=== PATIENT | female | born 1965 | race African-American/Black ===

== ENCOUNTER 2017-01-05 16:24 | Inpatient (IN) | payer OTHER ==
[2017-01-05 16:31] VITALS: BMI 18.7
--- NOTE | 2017-01-05 16:47 | HP ---
CIWA Score - CIWA Score Nausea/Vomitin Muscle Tremors: 3 Anxiety: 3 Agitation: 3 Paroxysmal Sweats: 1-Minimal Palms Moist Orientation: 0-Oriented Tacttile Disturbances: 2-Mild Itch/Numbness/Burn Auditory Disturbances: 2-Mild Harshness/Frighten Visual Disturbances: 2-Mild Sensitivity Headache: 2-Mild CIWA-Ar Total Score: 21 Admission ROS BHS - HPI Chief Complaint: I NEED HELP FROM STOP USING ALCOHOL AND CRACK Allergies/Adverse Reactions: Allergies Allergy/AdvReac Type Severity Reaction Status Date / Time Penicillins Allergy Verified 01/05/17 16:45 History of Present Illness: THIS 51 YEARS OLD FEMALE WITH ALCOHOL AND COCAINE DEPENDENCE Exam Limitations: No Limitations - Ebola screening Have you traveled outside of the country in the last 21 days: No Have you had contact with anyone from an Ebola affected area: No Have you been sick,other than usual withdrawal symptoms: No Do you have a fever: No - Review of Systems Constitutional: Loss of Appetite, Malaise, Night Sweats, Changes in sleep, Weakness, Unintentional Wgt. Loss EENT: reports: Nose Congestion Respiratory: reports: No Symptoms reported GI: reports: Diarrhea, Nausea, Vomiting, Abdominal cramping : reports: No Symptoms Reported Musculoskeletal: reports: Back Pain, Muscle Pain Integumentary: reports: Dryness Neuro: reports: Headache, Tremors Endocrine: reports: No Symptoms Reported Hematology: reports: No Symptoms Reported Psychiatric: reports: Depressed Patient History - Patient Medical History Hx Anemia: No Hx Asthma: No Hx Chronic Obstructive Pulmonary Disease (COPD): No Hx Cancer: No Hx Cardiac Disorders: No Hx Congestive Heart Failure: No Hx Hypertension: No Hx Hypercholesterolemia: No Hx Pacemaker: No HX Cerebrovascular Accident: No Hx Seizures: No Hx Dementia: No Hx Diabetes: No Hx Gastrointestinal Disorders: No Hx Liver Disease: No Hx Genitourinary Disorders: No Hx Sexually Transmitted Disorders: No Hx Renal Disease (ESRD): No Hx Thyroid Disease: No Hx Human Immunodeficiency Virus (HIV): Yes (SINCE 1999) Hx Hepatitis C: Yes Hx Depression: Yes Hx Suicide Attempt: No Hx Bipolar Disorder: No Hx Schizophrenia: No Other Medical History: NO SUICIDAL,NO HOMICIDAL - Patient Surgical History Past Surgical History: No - PPD History Previous Implant?: Yes Documented Results: Negative w/o proof Implanted On Prior [facility] Admission?: No PPD to be Administered?: Yes - Reproductive History Patient is a Female of Child Bearing Age (11 -55 yrs old): No Patient : No - Smoking Cessation Smoking history: Current every day smoker Have you smoked in the past 12 months: Yes Aproximately how many cigarettes per day: 10 Cigars Per Day: 0 Hx Chewing Tobacco Use: No Initiated information on smoking cessation: Yes 'Breaking Loose' booklet given: 01/05/17 - Substance & Tx. History Hx Alcohol Use: Yes Hx Substance Use: Yes Substance Use Type: Alcohol, Cocaine Hx Substance Use Treatment: Yes (LAST DETOX 2009 [facility]) - Substances Abused Alcohol Route: Oral Frequency: Daily Amount used: 1PINT OF VODKA/6 PACKS OF 12 OZS OF BEER Age of first use: 25 Date of Last Use: 01/04/17 Cocaine Route: Smoking Frequency: Daily Amount used: 100$ Age of first use: 22 Date of Last Use: 01/04/17 Family Disease History - Family Disease History Family History: Denies Admission Physical Exam [facility] - Vital Signs Vital Signs: Vital Signs - 24 hr 01/05/17 16:30 Temperature 98.0 F Pulse Rate 121 H Respiratory 20 Rate Blood Pressure 97/56 - Physical General Appearance: Yes: Moderate Distress, Tremorous, Irritable, Sweating HEENTM: Yes: Nasal Congestion Respiratory: Yes: Lungs Clear Neck: Yes: Within Normal Limits Breast: Yes: Breast Exam Deferred Cardiology: Yes: Tachycardia Abdominal: Yes: Within Normal Limits, Normal Bowel Sounds, Non Tender, Soft Genitourinary: Yes: Within Normal Limits Back: Yes: Muscle Spasm Musculoskeletal: Yes: Back pain, Muscle Pain Extremities: Yes: Tremors Neurological: Yes: taste tester II-XII NML intact, Fully Oriented, Alert, Motor Strength 5/5 Integumentary: Yes: Dry Lymphatic: Yes: Within Normal Limits - Diagnostic (1) Alcohol dependence with uncomplicated withdrawal Current Visit: Yes Status: Acute (2) Cocaine dependence Current Visit: Yes Status: Acute (3) Weight loss Current Visit: Yes Status: Acute (4) Syncope Current Visit: Yes Status: Acute (5) HIV (human immunodeficiency virus infection) Current Visit: Yes Status: Acute (6) Hepatitis C Current Visit: Yes Status: Acute (7) Depression Current Visit: Yes Status: Acute (8) Nicotine dependence Current Visit: Yes Status: Acute Cleared for Admission [facility] - Detox or Rehab [facility] Level of Care: Medically Managed Detox Regimen/Protocol: Librium [facility] Breath Alcohol Content Breath Alcohol Content: 0 Urine Pregancy Test - Result Urine Test Results: Negative- NO Line Present Urine Drug Screen - Results Drug Screen Negative: No Urine Drug Screen Results: CINDY-Cocaine, OXY-Oxycodone
[2017-01-05] MEDS ORDERED: diphenhydrAMINE HCL 50 MG CAPSULE PO PRN (16:58)
[2017-01-05] MEDS ORDERED: ACETAMINOPHEN 325 MG TABLET (FP) PO PRN (16:58)
[2017-01-05] MEDS ORDERED: P-EPHED 60MG/TRIPROLIDI 2.5MG TABLET PO PRN (16:58)
[2017-01-05] MEDS ORDERED: hydrOXYzine PAMOATE 25 MG CAPSULE (FP) PO PRN (16:58)
[2017-01-05] MEDS ORDERED: NICOTINE POLACRILEX 2 MG GUM BC PRN (16:58)
[2017-01-05] MEDS ORDERED: chlordiazePOXIDE HCL 25 MG CAPSULE PO PRN (16:58)
[2017-01-05] MEDS ORDERED: MAGNESIUM CITRATE 300 ML BOTTLE PO PRN (16:58)
[2017-01-05] MEDS ORDERED: guaiFENesin/D-METHORPHAN HB 10 ML UNIT-DOSE CUPS PO PRN (16:58)
[2017-01-05] MEDS ORDERED: chlordiazePOXIDE HCL 25 MG CAPSULE PO ONE (16:58)
[2017-01-05] MEDS ORDERED: LOPERAMIDE HCL 2 MG CAPSULE PO PRN (16:58)
[2017-01-05] MEDS ORDERED: MAGNESIUM HYDROX 2400MG/30ML ORAL SUSPENSION 30 ML CUP PO PRN (16:58)
[2017-01-05] MEDS ORDERED: MAG HYDROX/AL HYDROX/SIMETH 30 ML UNIT-DOSE CUP PO PRN (16:58)
[2017-01-05] MEDS ORDERED: MENTHOL/PHENOL 1 EACH UD MM PRN (16:58)
[2017-01-05] MEDS ORDERED: IBUPROFEN 400 MG TABLET (FP) PO PRN (16:58)
[2017-01-05] MEDS ORDERED: chlordiazePOXIDE HCL 25 MG CAPSULE ONE (19:32)
[2017-01-05] MEDS: [UNRECOGNIZED DRUG - OTHER] PO SCH (20:00)
[2017-01-05] MEDS: THIAMINE HCL 100 MG TABLET (FP) PO SCH (22:55)
[2017-01-05] MEDS: lamiVUDine/ZIDOVUDINE 150/300 1 COMBO TABLET PO SCH (22:55)
[2017-01-05] MEDS: chlordiazePOXIDE HCL 25 MG CAPSULE PO SCH (23:30)
[2017-01-06] MEDS: chlordiazePOXIDE HCL 25 MG CAPSULE PO SCH ×4 (06:29→23:30)
[2017-01-06] MEDS: [UNRECOGNIZED DRUG - OTHER] PO SCH ×2 (07:24→17:21)
--- NOTE | 2017-01-06 09:27 | PN ---
S CIWA - CIWA Score Nausea/Vomitin Muscle Tremors: 3 Anxiety: 2 Agitation: 2 Paroxysmal Sweats: 1-Minimal Palms Moist Orientation: 0-Oriented Tacttile Disturbances: 1-Very Mild Itch/Numbness Auditory Disturbances: 1-Very Mild Visual Disturbances: 1-Very Mild Sensitivity Headache: 2-Mild CIWA-Ar Total Score: 16 BHS Progress Note (SOAP) Subjective: ALERT,IRRITABLE,ANXIOUS,INTERRUPTED SLEEP,TREMOR Objective: 01/06/17 09:25 Vital Signs Temperature 97.0 F L 01/05/17 18:12 Pulse Rate 118 H 01/05/17 18:12 Respiratory Rate 18 01/06/17 03:30 Blood Pressure 112/50 01/05/17 18:12 O2 Sat by Pulse Oximetry (%) EKG SINUS TACHYCARDIA 118/MIN NO CHEST PAIN NO SOB,NO DIZZINESS Assessment: 01/06/17 09:26 WITHDRAWAL SYMPTOM Plan: CONTINUE DETOX
--- NOTE | 2017-01-06 11:28 | CONSULT ---
[facility] Psychiatric Consult - Data Date of interview: 01/06/17 Admission source: [facility] Identifying data: This is 51 years old female with no psychiatric hospitalization history iontoxicated with Alcohol, Cocaine nad Nicotine Substance Abuse History: - Smoking Cessation. Smoking history: Current every day smoker. Have you smoked in the past 12 months: Yes. Aproximately how many cigarettes per day: 10. Cigars Per Day: 0. Hx Chewing Tobacco Use: No. Initiated information on smoking cessation: Yes. 'Breaking Loose' booklet given : 01/05/17. - Substance & Tx. History. Hx Alcohol Use: Yes. Hx Substance Use : Yes. Substance Use Type: Alcohol, Cocaine. Hx Substance Use Treatment: Yes ( LAST DETOX 2010 [facility]). - Substances Abused. Alcohol. Route: Oral. Frequency: Daily. Amount used: 1PINT OF VODKA/6 PACKS OF 12 OZS OF BEER. Age of first use: 25. Date of Last Use: 01/04/17. Cocaine. Route: Smoking. Frequency: Daily. Amount used: 100$. Age of first use: 22. Date of Last Use: 01/04/17 Medical History: HepC+, HIV+, Syncope history, Weight loss history Psychiatric History: Patient reports history o9f depression, reports no medications takiong prior to admission Physical/Sexual Abuse/Trauma History: Denies Additional Comment: Observation. Detx Unit Care Protocol Mental Status Exam - Mental Status Exam Alert and Oriented to: Person Cognitive Function: Fair Patient Appearance: Unkempt Mood: Sad Affect: Flat Patient Behavior: Sedated Speech Pattern: Delayed Voice Loudness: Mildly Soft/Quiet Thought Process: Circumstantial Thought Disorder: Being Controlled Hallucinations: Denies Suicidal Ideation: Denies Homicidal Ideation: Denies Insight/Judgement: Fair Sleep: Difficulty falling asleep Appetite: Weight loss Muscle strength/Tone: Mild Hypotonicity Gait/Station: Shuffling Additional Comments: Observation. Detx Unit Care Protocol Psychiatric Findings - Problem List ([place] 1, 2,3) (1) Alcohol dependence with uncomplicated withdrawal Current Visit: Yes Status: Acute (2) Cocaine dependence Current Visit: Yes Status: Acute (3) Nicotine dependence Current Visit: Yes Status: Acute - Initial Treatment Plan Initial Treatment Plan: Observation. Detx Unit Care Protocol
[2017-01-06] MEDS: PRENATAL VITAMINS W/ FOLIC ACID TABLET (FP) PO SCH (11:42)
[2017-01-06] MEDS: lamiVUDine/ZIDOVUDINE 150/300 1 COMBO TABLET PO SCH ×2 (11:42→22:55)
[2017-01-06] MEDS ORDERED: PNEUMOC 13-VAL CONJ-DIP CRM/PF 0.5 ML DISP.SYRIN IM ONE (12:00)
--- NOTE | 2017-01-06 13:57 | EKG ---
Test Reason : Blood Pressure : / mmHG Vent. Rate : 118 BPM Atrial Rate : 118 BPM P-R Int : 140 ms QRS Dur : 066 ms QT Int : 322 ms P-R-T Axes : 068 055 067 degrees QTc Int : 451 ms POOR DATA QUALITY, INTERPRETATION MAY BE ADVERSELY AFFECTED SINUS TACHYCARDIA NONSPECIFIC T WAVE ABNORMALITY NO PREVIOUS ECGS AVAILABLE Confirmed by LOIS HASSAN MD ([id number]) on 01/06/2017 1:56:49 PM Referred By: Confirmed By:LOIS HASSAN MD
[2017-01-06] MEDS: THIAMINE HCL 100 MG TABLET (FP) PO SCH (22:55)
[2017-01-07] MEDS: chlordiazePOXIDE HCL 25 MG CAPSULE PO SCH ×3 (05:10→17:17)
--- NOTE | 2017-01-07 10:05 | PN ---
S CIWA - CIWA Score Nausea/Vomitin Muscle Tremors: 3 Anxiety: 3 Agitation: 2 Paroxysmal Sweats: 1-Minimal Palms Moist Orientation: 0-Oriented Tacttile Disturbances: 1-Very Mild Itch/Numbness Auditory Disturbances: 1-Very Mild Visual Disturbances: 1-Very Mild Sensitivity Headache: 2-Mild CIWA-Ar Total Score: 17 BHS Progress Note (SOAP) Subjective: ALERT,IRRITABLE,ANXIOUS,INTERRUPTED SLEEP, Objective: 01/07/17 10:03 Vital Signs Temperature 98.4 F 01/06/17 23:44 Pulse Rate 85 01/06/17 23:44 Respiratory Rate 18 01/07/17 06:39 Blood Pressure 98/78 01/06/17 23:44 O2 Sat by Pulse Oximetry (%) Assessment: 01/07/17 10:04 WITHDRAWAL SYMPTOM Plan: CONTINUE DETOX
[2017-01-07] MEDS: lamiVUDine/ZIDOVUDINE 150/300 1 COMBO TABLET PO SCH ×2 (10:51→23:21)
[2017-01-07] MEDS: PRENATAL VITAMINS W/ FOLIC ACID TABLET (FP) PO SCH (10:51)
[2017-01-07] MEDS: [UNRECOGNIZED DRUG - OTHER] PO SCH ×2 (10:52→18:00)
[2017-01-07 16:12] LABS: ALBUMIN 2.8 g/dl (3.4-5.0); ANION GAP 9 (8-16); CALCIUM 8.1 mg/dL (8.5-10.1); CO2 29 mmol/L (21-32); GLUCOSE,RANDOM 97 mg/dL (74-106)
[2017-01-07 16:19] LABS: MCH 34.1 pg (25.7-33.7); MCHC 33.7 g/dl (32.0-36.0); MEAN CELL VOLUME 101.3 fl (80-96); PLATELET COUNT 107 K/MM3 (134-434); RDW 13.1 % (11.6-15.6)
[2017-01-07 16:26] LABS: ALK PHOS 53 U/L (45-117); BILIRUBIN,TOTAL 0.4 mg/dL (0.2-1.0); CREATININE 0.8 mg/dL (0.55-1.02); SGOT/AST 103 U/L (15-37); SGPT/ALT 42 U/L (12-78); TOT PROT 7.5 g/dl (6.4-8.2)
[2017-01-07 18:22] LABS: ANISOCYTOSIS 1+; HYPOCHROMIA 1+; PLATELET ESTIMATE SLT DECREASED (NORMAL)
[2017-01-07] MEDS: chlordiazePOXIDE 5 MG CAPSULE PO SCH (23:21)
[2017-01-07] MEDS: THIAMINE HCL 100 MG TABLET (FP) PO SCH (23:22)
[2017-01-08] MEDS: chlordiazePOXIDE 5 MG CAPSULE PO SCH ×2 (06:00→10:26)
--- NOTE | 2017-01-08 09:36 | PN ---
[facility] Progress Note (SOAP) Subjective: ALERT,NO COMPLAINT Objective: 01/08/17 09:33 Vital Signs Temperature 96.6 F L 01/07/17 22:00 Pulse Rate 68 01/07/17 22:00 Respiratory Rate 18 01/08/17 03:30 Blood Pressure 100/63 01/07/17 22:00 O2 Sat by Pulse Oximetry (%) 01/08/17 09:33 Laboratory Last Values WBC 2.0 K/mm3 (4.0-10.0) L 01/07/17 11:10 RBC 3.32 M/mm3 (3.60-5.2) L 01/07/17 11:10 Hgb 11.3 GM/dL (10.7-15.3) 01/07/17 11:10 Hct 33.6 % (32.4-45.2) 01/07/17 11:10 MCV 101.3 fl (80-96) H 01/07/17 11:10 MCHC 33.7 g/dl (32.0-36.0) 01/07/17 11:10 RDW 13.1 % (11.6-15.6) 01/07/17 11:10 Plt Count 107 K/MM3 (134-434) L 01/07/17 11:10 MPV 11.0 fl (7.5-11.1) 01/07/17 11:10 Neutrophils % 33.0 % (42.8-82.8) L 01/07/17 11:10 Lymphocytes % 50.0 % (8-40) H 01/07/17 11:10 Monocytes % 13.0 % (3.8-10.2) H 01/07/17 11:10 Differential Comment Manual diff done 01/07/17 11:10 Reactive Lymphocytes 4 % (0-80) 01/07/17 11:10 Platelet Estimate Slt decreased (NORMAL) 01/07/17 11:10 Hypochromic-Microcytic 1+ 01/07/17 11:10 Anisocytosis 1+ 01/07/17 11:10 Macrocytosis 1+ 01/07/17 11:10 Morphology Comment Slide scanned 01/07/17 11:10 Sodium 142 mmol/L (136-145) 01/07/17 11:10 Potassium 3.4 mmol/L (3.5-5.1) L 01/07/17 11:10 Chloride 104 mmol/L (98-107) 01/07/17 11:10 Carbon Dioxide 29 mmol/L (21-32) 01/07/17 11:10 Anion Gap 9 (8-16) 01/07/17 11:10 BUN 12 mg/dL (7-18) 01/07/17 11:10 Creatinine 0.8 mg/dL (0.55-1.02) 01/07/17 11:10 Creat Clearance w eGFR > 60 (>60) 01/07/17 11:10 Random Glucose 97 mg/dL (74-106) 01/07/17 11:10 Calcium 8.1 mg/dL (8.5-10.1) L 01/07/17 11:10 Total Bilirubin 0.4 mg/dL (0.2-1.0) 01/07/17 11:10 AST 103 U/L (15-37) H 01/07/17 11:10 ALT 42 U/L (12-78) 01/07/17 11:10 Alkaline Phosphatase 53 U/L (45-117) 01/07/17 11:10 Total Protein 7.5 g/dl (6.4-8.2) 01/07/17 11:10 Albumin 2.8 g/dl (3.4-5.0) L 01/07/17 11:10 Assessment: PATIENT IS STABLE 01/08/17 09:34 Plan: PATIENT IS UNCOOPERATIVE,REFUSED TO TAKE MEDICATION,HES BEEN TOLD MANY TIMES BY COUNSELOR AND STAFFS
[2017-01-08] MEDS ORDERED: POTASSIUM CHLORIDE TABS 20 MEQ TABLET.ER (FP) PO SCH (10:00)
[2017-01-08] MEDS: PRENATAL VITAMINS W/ FOLIC ACID TABLET (FP) PO SCH (10:26)
[2017-01-08] MEDS: lamiVUDine/ZIDOVUDINE 150/300 1 COMBO TABLET PO SCH (10:26)
[2017-01-08] MEDS: [UNRECOGNIZED DRUG - OTHER] PO SCH (10:26)
[2017-01-08 13:49] VITALS: BP 110/81; PULSE 72; TEMP 98.2
--- NOTE | 2017-01-08 14:31 | PN ---
S Progress Note Note: PATIENT DID NOT WANT TO COMPLETE TREATMENT,SIGNED RELEASE AMA,SEEN BY COUNSELOR, ADVISE TO SEE PMD FOR MEDICAL PROBLEM
--- NOTE | 2017-01-08 14:35 | DS ---
[facility] Detox Discharge Summary Admission Date: 01/05/17 Discharge Date: 01/08/17 - History Present History: Alcohol Dependence, Cocaine Dependence Additional Comments: PATIENT DID NOT WANT TO COMPLETE TREATMENT,SIGNED RELEASE AMA,DID NOT WANT TO WAIT,SEEN BY COUNSELOR, FOLLOW UP WITH PMD FOR MEDICAL PROBLEM Pertinent Past History: HIV DEPRESSION HEPATITIS C - Physical Exam Results Vital Signs: Vital Signs Temperature 98.2 F 01/08/17 13:48 Pulse Rate 72 01/08/17 13:48 Respiratory Rate 18 01/08/17 13:48 Blood Pressure 110/81 01/08/17 13:48 O2 Sat by Pulse Oximetry (%) Pertinent Admission Physical Exam Findings: WITHDRAWAL SYMPTOM - Medication Discharge Medications: Ambulatory Orders Lamivudine/Zidovudine [Lamivudine-Zidovudine Tablet] 1 each PO BID 01/05/17 Nelfinavir Mesylate [Viracept -] 1,250 mg PO BID 01/05/17 - Diagnosis (1) Alcohol dependence with uncomplicated withdrawal Current Visit: Yes Status: Acute (2) Cocaine dependence Current Visit: Yes Status: Acute (3) Weight loss Current Visit: Yes Status: Acute (4) Syncope Current Visit: Yes Status: Acute (5) HIV (human immunodeficiency virus infection) Current Visit: Yes Status: Acute (6) Hepatitis C Current Visit: Yes Status: Acute (7) Depression Current Visit: Yes Status: Acute (8) Nicotine dependence Current Visit: Yes Status: Acute - AMA Did Patient Leave Against Medical Advice: Yes
[2017-01-08] MEDS ORDERED: chlordiazePOXIDE HCL 10 MG CAPSULE PO SCH (23:00)
== END 2017-01-08 14:28 | disposition left against medical advice (07) | DRG 770 ==
LOC: YASAS 16:24 → Y6N 16:58
PROVIDERS: ADMIT Internal Medicine Addiction Medicine; ATTEND Internal Medicine Addiction Medicine
PROC: HZ2ZZZZ Detoxification Services for Substance Abuse Treatment (ICD-10-PCS; principal; 2017-01-08)
DX: F10.230 Alcohol dependence with withdrawal, uncomplicated (principal); F14.20 Cocaine dependence, uncomplicated; F17.210 Nicotine dependence, cigarettes, uncomplicated; F32.9 Major depressive disorder, single episode, unspecified; B18.2 Chronic viral hepatitis C; Z21 Asymptomatic human immunodeficiency virus [HIV] infection status; R55 Syncope and collapse; R63.4 Abnormal weight loss; Z68.1 Body mass index [BMI] 19.9 or less, adult
CPT/HCPCS: 36415; 80053; 85027; 86593; 93005; 93010

== ENCOUNTER 2017-03-08 10:14 | Inpatient (IN) | payer OTHER ==
[2017-03-08 10:29] VITALS: BMI 18.2
--- NOTE | 2017-03-08 11:07 | HP ---
CIWA Score - CIWA Score Nausea/Vomitin-Mild Nausea/No Vomiting Muscle Tremors: 4-Moderate,w/Arms Extend Anxiety: 4-Mod. Anxious/Guarded Agitation: 1-Slight > Activity Paroxysmal Sweats: 1-Minimal Palms Moist Orientation: 0-Oriented Tacttile Disturbances: 2-Mild Itch/Numbness/Burn Auditory Disturbances: 1-Very Mild Visual Disturbances: 1-Very Mild Sensitivity Headache: 2-Mild CIWA-Ar Total Score: 17 Admission ROS BHS - HPI Chief Complaint: I need help to stop, I can't afford it Allergies/Adverse Reactions: Allergies Allergy/AdvReac Type Severity Reaction Status Date / Time Penicillins Allergy Mild Hives Verified 03/08/17 11:11 History of Present Illness: 52 yo woman here for detox from alcohol - coming from [facility] ED states she ' fell out' and was taken there. History of HIV but does not remember when she took last dose (maybe four months ago), on psych meds but not sure what they are or when she took them. States she is on depakote for seizures. Exam Limitations: Clinical Condition - Ebola screening Have you traveled outside of the country in the last 21 days: No Have you had contact with anyone from an Ebola affected area: No Have you been sick,other than usual withdrawal symptoms: No Do you have a fever: No - Review of Systems Constitutional: Loss of Appetite, Malaise, Changes in sleep, Unintentional Wgt. Loss EENT: reports: No Symptoms Reported Respiratory: reports: No Symptoms reported Cardiac: reports: No Symptoms Reported GI: reports: Diarrhea, Poor Appetite, Abdominal cramping : reports: No Symptoms Reported Musculoskeletal: reports: Back Pain Integumentary: reports: Dryness Neuro: reports: Headache, Tremors Endocrine: reports: No Symptoms Reported Hematology: reports: No Symptoms Reported Psychiatric: reports: Judgement Intact, Mood/Affect Appropiate, Anxious Other Systems: Reviewed and Negative Patient History - Patient Medical History Hx Anemia: No Hx Asthma: No Hx Chronic Obstructive Pulmonary Disease (COPD): No Hx Cancer: No Hx Cardiac Disorders: No Hx Congestive Heart Failure: No Hx Hypertension: No Hx Hypercholesterolemia: No Hx Pacemaker: No HX Cerebrovascular Accident: No Hx Seizures: Yes (six years ago) Hx Dementia: No Hx Diabetes: No Hx Gastrointestinal Disorders: No Hx Liver Disease: No Hx Genitourinary Disorders: No Hx Sexually Transmitted Disorders: Yes (given injection) Hx Renal Disease (ESRD): No Hx Thyroid Disease: No Hx Human Immunodeficiency Virus (HIV): Yes (SINCE 1999 tcells under 100) Hx Hepatitis C: Yes Hx Depression: Yes Hx Suicide Attempt: No Hx Bipolar Disorder: No Hx Schizophrenia: Yes - Patient Surgical History Past Surgical History: No Hx Neurologic Surgery: No Hx Cataract Extraction: No Hx Cardiac Surgery: No Hx Lung Surgery: No Hx Breast Surgery: No Hx Breast Biopsy: No Hx Abdominal Surgery: No Hx Appendectomy: No Hx Cholecystectomy: No Hx Genitourinary Surgery: No Hx Section: No Hx Orthopedic Surgery: No Anesthesia Reaction: No - PPD History Previous Implant?: Yes Documented Results: Negative w/proof Date: 01/07/17 PPD to be Administered?: No - Reproductive History Patient is a Female of Child Bearing Age (11 -55 yrs old): Yes - Smoking Cessation Smoking history: Current every day smoker Have you smoked in the past 12 months: Yes Aproximately how many cigarettes per day: 10 Cigars Per Day: 0 Hx Chewing Tobacco Use: No Initiated information on smoking cessation: Yes 'Breaking Loose' booklet given: 03/08/17 (give on floor) - Substance & Tx. History Hx Alcohol Use: Yes Hx Substance Use: Yes Substance Use Type: Alcohol Hx Substance Use Treatment: Yes (detox,) - Substances Abused Alcohol Route: Oral Frequency: Daily Amount used: 1/5 vodka Age of first use: 25 Date of Last Use: 03/07/17 Cocaine Route: Smoking Frequency: Daily Amount used: $500 Age of first use: 23 Date of Last Use: 03/07/17 Family Disease History - Family Disease History Family Disease History: Heart Disease: Mother (alive ), Other: Father ( - cancer ), Mother, Sister (alcohol , alive) Admission Physical Exam BHS - Vital Signs Vital Signs: Vital Signs - 24 hr 03/08/17 10:20 Temperature 96.8 F L Pulse Rate 68 Respiratory 16 Rate Blood Pressure 98/65 - Physical General Appearance: Yes: Nourished, Appropriately Dressed, Mild Distress, Thin, Tremorous, Anxious HEENTM: Yes: Hearing grossly Normal, Normal ENT Inspection, Normocephalic, Normal Voice, Pharynx Normal Respiratory: Yes: Normal Breath Sounds, No Respiratory Distress Neck: Yes: No masses,lesions,Nodules Breast: Yes: Breast Exam Deferred Cardiology: Yes: Regular Rhythm, Regular Rate Abdominal: Yes: Soft Genitourinary: Yes: Frequency Back: Yes: Normal Inspection Musculoskeletal: Yes: full range of Motion, Gait Steady Extremities: Yes: Normal Inspection, Non-Tender, Tremors Neurological: Yes: Fully Oriented, Alert, Normal Mood/Affect, Numbness Integumentary: Yes: Normal Color, Dry, Warm Lymphatic: Yes: Within Normal Limits - Diagnostic (1) Alcohol dependence with uncomplicated withdrawal Current Visit: Yes Status: Chronic (2) Cocaine dependence Current Visit: Yes Status: Chronic Qualifiers: Substance use status: uncomplicated Qualified Code(s): F14.20 - Cocaine dependence, uncomplicated (3) HIV (human immunodeficiency virus infection) Current Visit: Yes Status: Chronic (4) Hepatitis C Current Visit: Yes Status: Chronic Qualifiers: Viral hepatitis chronicity: chronic Hepatic coma status: without hepatic coma Qualified Code(s): B18.2 - Chronic viral hepatitis C (5) Nicotine dependence Current Visit: Yes Status: Chronic Qualifiers: Nicotine product type: cigarettes Substance use status: uncomplicated Qualified Code(s): F17.210 - Nicotine dependence, cigarettes, uncomplicated (6) Weight loss Current Visit: No Status: Acute (7) Drug withdrawal seizure Current Visit: Yes Status: Chronic Qualifiers: Complication of substance-induced condition: uncomplicated Qualified Code(s): F19.230 - Other psychoactive substance dependence with withdrawal, uncomplicated Cleared for Admission [facility] - Detox or Rehab [facility] Level of Care: Medically Managed Detox Regimen/Protocol: Librium [facility] Breath Alcohol Content Breath Alcohol Content: 0 Urine Pregancy Test - Result Urine Test Results: Negative- NO Line Present Urine Drug Screen - Results Drug Screen Negative: No Urine Drug Screen Results: CINDY-Cocaine, BZO-Benzodiazepines
[2017-03-08] MEDS ORDERED: diphenhydrAMINE HCL 50 MG CAPSULE PO PRN (11:24)
[2017-03-08] MEDS ORDERED: P-EPHED 60MG/TRIPROLIDI 2.5MG TABLET PO PRN (11:24)
[2017-03-08] MEDS ORDERED: MAGNESIUM CITRATE 300 ML BOTTLE PO PRN (11:24)
[2017-03-08] MEDS ORDERED: MAG HYDROX/AL HYDROX/SIMETH 30 ML UNIT-DOSE CUP PO PRN (11:24)
[2017-03-08] MEDS ORDERED: LOPERAMIDE HCL 2 MG CAPSULE PO PRN (11:24)
[2017-03-08] MEDS ORDERED: chlordiazePOXIDE HCL 25 MG CAPSULE PO PRN (11:24)
[2017-03-08] MEDS ORDERED: NICOTINE POLACRILEX 4 MG GUM BC PRN (11:24)
[2017-03-08] MEDS ORDERED: guaiFENesin/D-METHORPHAN HB 10 ML UNIT-DOSE CUPS PO PRN (11:24)
[2017-03-08] MEDS ORDERED: MENTHOL/PHENOL 1 EACH UD MM PRN (11:24)
[2017-03-08] MEDS ORDERED: MAGNESIUM HYDROX 2400MG/30ML ORAL SUSPENSION 30 ML CUP PO PRN (11:24)
[2017-03-08] MEDS ORDERED: chlordiazePOXIDE HCL 25 MG CAPSULE PO ONE (12:15)
[2017-03-08] MEDS: SULFAMETHOXAZOLE/TRIMETHOPRIM 800MG/160MG D.S. TABLET PO SCH (12:50)
[2017-03-08] MEDS: DIVALPROEX SODIUM 500 MG TABLET E.C. PO SCH ×2 (12:50→21:18)
[2017-03-08] MEDS: FLUCONAZOLE 100 MG TABLET (UD) PO SCH (12:51)
[2017-03-08] MEDS: chlordiazePOXIDE HCL 25 MG CAPSULE PO SCH ×2 (17:45→22:50)
[2017-03-08 18:36] LABS: URINE APPEARANCE CLEAR; URINE BILIRUBIN NEGATIVE (NEGATIVE); URINE BLOOD NEGATIVE (NEGATIVE); URINE COLOR AMBER; URINE GLUCOSE (UA) NEGATIVE (NEGATIVE); URINE KETONE NEGATIVE (NEGATIVE); URINE NITRITE NEGATIVE (NEGATIVE); URINE UROBILINOGEN 4.0 E.U/dl E.U./dl (0.2-1.0)
[2017-03-08 18:40] LABS: URINE LEUK ESTERASE 3+ (NEGATIVE); URINE PROTEIN 1+ (NEGATIVE)
[2017-03-08 18:42] LABS: CALCIUM OXALATE CRYSTALS RARE /hpf (NONE SEEN); URINE MUCUS RARE; URINE RBC 4 /hpf (0-3); URINE WBC 25 /hpf (3-5)
[2017-03-08] MEDS: THIAMINE HCL 100 MG TABLET (FP) PO SCH (22:50)
[2017-03-09] MEDS: chlordiazePOXIDE HCL 25 MG CAPSULE PO SCH ×4 (06:39→22:49)
[2017-03-09] MEDS: ACETAMINOPHEN 325 MG TABLET (FP) PO PRN ×2 (07:41→23:48)
[2017-03-09 09:22] LABS: MCH 33.7 pg (25.7-33.7); MCHC 33.6 g/dl (32.0-36.0); MEAN CELL VOLUME 100.3 fl (80-96); MEAN PLT VOLUME 10.5 fl (7.5-11.1); PLATELET COUNT 68 K/MM3 (134-434); RDW 12.2 % (11.6-15.6); WHITE BLOOD COUNT 2.4 K/mm3 (4.0-10.0)
[2017-03-09] MEDS: SULFAMETHOXAZOLE/TRIMETHOPRIM 800MG/160MG D.S. TABLET PO SCH (09:28)
[2017-03-09] MEDS: FLUCONAZOLE 100 MG TABLET (UD) PO SCH (09:28)
[2017-03-09] MEDS: PRENATAL VITAMINS W/ FOLIC ACID TABLET (FP) PO SCH (09:28)
[2017-03-09] MEDS: DIVALPROEX SODIUM 500 MG TABLET E.C. PO SCH ×2 (09:28→22:50)
[2017-03-09 09:29] LABS: ALBUMIN 2.4 g/dl (3.4-5.0); ANION GAP 10 (8-16); BILIRUBIN,TOTAL 0.4 mg/dL (0.2-1.0); CALCIUM 7.7 mg/dL (8.5-10.1); CO2 28 mmol/L (21-32); CREATININE 0.9 mg/dL (0.55-1.02); GLUCOSE,RANDOM 88 mg/dL (74-106); SGOT/AST 64 U/L (15-37); SGPT/ALT 26 U/L (12-78)
[2017-03-09 09:30] LABS: ALK PHOS 45 U/L (45-117)
[2017-03-09] MEDS: hydrOXYzine PAMOATE 25 MG CAPSULE (FP) PO PRN (09:30)
--- NOTE | 2017-03-09 16:16 | PN ---
[facility] CIWA - CIWA Score Nausea/Vomitin-Mild Nausea/No Vomiting Muscle Tremors: 4-Moderate,w/Arms Extend Anxiety: 4-Mod. Anxious/Guarded Agitation: 4-Moderately Restless Paroxysmal Sweats: No Perspiration Orientation: 0-Oriented Tacttile Disturbances: 1-Very Mild Itch/Numbness Auditory Disturbances: 0-None Visual Disturbances: 0-None Headache: 1-Very Mild CIWA-Ar Total Score: 15 S Progress Note (SOAP) Subjective: Very irritable, anxious, restless, agitated; patient used lots of profanity towards staff. Counselor had to speak with her in order for her to get out of bed and take her vital signs and medications this morning. Objective: 03/09/17 16:13 Last Vital Signs Temp Pulse Resp BP Pulse Ox 97.3 F L 96 H 18 109/65 03/09/17 14:14 03/09/17 14:14 03/09/17 14:14 03/09/17 14:14 Laboratory Tests 03/08/17 03/09/17 03/09/17 18:10 07:30 07:30 WBC 2.4 L RBC 3.43 L Hgb 11.6 Hct 34.4 MCV 100.3 H MCHC 33.6 RDW 12.2 Plt Count 68 L D MPV 10.5 Sodium 143 Potassium 3.5 Chloride 105 Carbon Dioxide 28 Anion Gap 10 BUN 9 D Creatinine 0.9 Creat Clearance w eGFR > 60 Random Glucose 88 Calcium 7.7 L Total Bilirubin 0.4 AST 64 H D ALT 26 D Alkaline Phosphatase 45 Total Protein 7.0 Albumin 2.4 L Urine Color Kellie Urine Appearance Clear Urine pH 6.0 Ur Specific [place] 1.024 Urine Protein 1+ H Urine Glucose (UA) Negative Urine Ketones Negative Urine Blood Negative Urine Nitrite Negative Urine Bilirubin Negative Urine Urobilinogen 4.0 e.u/dl H Ur Leukocyte Esterase 3+ H Urine RBC 4 Urine WBC 25 Ur Epithelial Cells Few Calcium Oxalate Crystal Rare Urine Mucus Rare RPR Titer 03/09/17 07:30 WBC RBC Hgb Hct MCV MCHC RDW Plt Count MPV Sodium Potassium Chloride Carbon Dioxide Anion Gap BUN Creatinine Creat Clearance w eGFR Random Glucose Calcium Total Bilirubin AST ALT Alkaline Phosphatase Total Protein Albumin Urine Color Urine Appearance Urine pH Ur Specific [place] Urine Protein Urine Glucose (UA) Urine Ketones Urine Blood Urine Nitrite Urine Bilirubin Urine Urobilinogen Ur Leukocyte Esterase Urine RBC Urine WBC Ur Epithelial Cells Calcium Oxalate Crystal Urine Mucus RPR Titer Nonreactive Labs noted: pancytopenia, abnormal UA Assessment: 03/09/17 16:15 Withdrawal symptoms Noted with pancytopenia and abnormal UA Plan: Continue detox Pancytopenia: monitor for bleeding/bruising Abnormal UA: encouraged to drink lots of water, repeat UA
--- NOTE | 2017-03-09 17:18 | EKG ---
Test Reason : Blood Pressure : / mmHG Vent. Rate : 090 BPM Atrial Rate : 090 BPM P-R Int : 152 ms QRS Dur : 078 ms QT Int : 350 ms P-R-T Axes : 079 067 070 degrees QTc Int : 428 ms NORMAL SINUS RHYTHM NORMAL ECG WHEN COMPARED WITH ECG OF 05-JAN-2017 18:07, NO SIGNIFICANT CHANGE WAS FOUND Confirmed by CLAUDE LOPEZ MD ([id number]) on 03/09/2017 5:17:31 PM Referred By: Confirmed By:CLAUDE LOPEZ MD
[2017-03-09] MEDS: THIAMINE HCL 100 MG TABLET (FP) PO SCH (22:50)
[2017-03-10] MEDS: chlordiazePOXIDE HCL 25 MG CAPSULE PO SCH ×2 (06:21→10:49)
[2017-03-10] MEDS: SULFAMETHOXAZOLE/TRIMETHOPRIM 800MG/160MG D.S. TABLET PO SCH (10:49)
[2017-03-10] MEDS: PRENATAL VITAMINS W/ FOLIC ACID TABLET (FP) PO SCH (10:49)
[2017-03-10] MEDS: DIVALPROEX SODIUM 500 MG TABLET E.C. PO SCH ×2 (10:49→22:12)
[2017-03-10] MEDS: FLUCONAZOLE 100 MG TABLET (UD) PO SCH (10:49)
[2017-03-10] MEDS: IBUPROFEN 400 MG TABLET (FP) PO PRN (10:51)
--- NOTE | 2017-03-10 11:15 | PN ---
S CIWA - CIWA Score Nausea/Vomitin Muscle Tremors: 2 Anxiety: 2 Agitation: 2 Paroxysmal Sweats: 3 Orientation: 0-Oriented Tacttile Disturbances: 2-Mild Itch/Numbness/Burn Auditory Disturbances: 0-None Visual Disturbances: 0-None Headache: 0-None Present CIWA-Ar Total Score: 13 BHS Progress Note (SOAP) Subjective: sweats, feet and body aches Objective: 03/10/17 11:13 Vital Signs Temperature 98.1 F 03/10/17 09:51 Pulse Rate 105 H 03/10/17 09:51 Respiratory Rate 18 03/10/17 09:51 Blood Pressure 104/66 03/10/17 09:51 O2 Sat by Pulse Oximetry (%) Laboratory Tests 03/08/17 03/09/17 03/09/17 18:10 07:30 07:30 WBC 2.4 L RBC 3.43 L Hgb 11.6 Hct 34.4 MCV 100.3 H MCHC 33.6 RDW 12.2 Plt Count 68 L D MPV 10.5 Sodium 143 Potassium 3.5 Chloride 105 Carbon Dioxide 28 Anion Gap 10 BUN 9 D Creatinine 0.9 Creat Clearance w eGFR > 60 Random Glucose 88 Calcium 7.7 L Total Bilirubin 0.4 AST 64 H D ALT 26 D Alkaline Phosphatase 45 Total Protein 7.0 Albumin 2.4 L Urine Color Kellie Urine Appearance Clear Urine pH 6.0 Ur Specific [place] 1.024 Urine Protein 1+ H Urine Glucose (UA) Negative Urine Ketones Negative Urine Blood Negative Urine Nitrite Negative Urine Bilirubin Negative Urine Urobilinogen 4.0 e.u/dl H Ur Leukocyte Esterase 3+ H Urine RBC 4 Urine WBC 25 Ur Epithelial Cells Few Calcium Oxalate Crystal Rare Urine Mucus Rare RPR Titer 03/09/17 07:30 WBC RBC Hgb Hct MCV MCHC RDW Plt Count MPV Sodium Potassium Chloride Carbon Dioxide Anion Gap BUN Creatinine Creat Clearance w eGFR Random Glucose Calcium Total Bilirubin AST ALT Alkaline Phosphatase Total Protein Albumin Urine Color Urine Appearance Urine pH Ur Specific [place] Urine Protein Urine Glucose (UA) Urine Ketones Urine Blood Urine Nitrite Urine Bilirubin Urine Urobilinogen Ur Leukocyte Esterase Urine RBC Urine WBC Ur Epithelial Cells Calcium Oxalate Crystal Urine Mucus RPR Titer Nonreactive pt aox3 in nad , lying in bed Assessment: 03/10/17 11:13 withdrawal sx Plan: cont. detox increase fluids motrin prn
--- NOTE | 2017-03-10 15:41 | CONSULT ---
[facility] Psychiatric Consult - Data Date of interview: 03/10/17 Admission source: [facility] Identifying data: This is 52 years old female with history of Bipolar disorder intoxicated with: Alcohol, Copcaine and Nicotine Substance Abuse History: Smoking history: Current every day smoker. Have you smoked in the past 12 months: Yes. Aproximately how many cigarettes per day: 10. Cigars Per Day: 0. Hx Chewing Tobacco Use: No. Initiated information on smoking cessation: Yes. 'Breaking Loose' booklet given: 03/08/17 (give on floor ). - Substance & Tx. History. Hx Alcohol Use: Yes. Hx Substance Use: Yes. Substance Use Type: Alcohol. Hx Substance Use Treatment: Yes (detox,). - Substances Abused. Alcohol. Route: Oral. Frequency: Daily. Amount used: 1 /5 vodka. Age of first use: 25. Date of Last Use: 03/07/17. Cocaine. Route: Smoking. Frequency: Daily. Amount used: $500. Age of first use: 23. Date of Last Use: 03/07/17 Medical History: HepC+, HIV, Syncope, Weight loss Psychiatric History: Patient reports history of Bip[-olar disorder, reports most recent psychiqatric admission on about 10 yeqars ago, as per computer has been on: Depakote 500mg po bid Physical/Sexual Abuse/Trauma History: Denies Additional Comment: Depakote 500mg po bid Mental Status Exam - Mental Status Exam Alert and Oriented to: Person Cognitive Function: Fair Patient Appearance: Unkempt, Disheveled Mood: Withdrawn, Irritable Affect: Flat Patient Behavior: Sedated, Fatigued Speech Pattern: Slurred Voice Loudness: Mildly Soft/Quiet Thought Process: Circumstantial Thought Disorder: Being Controlled Hallucinations: Denies Suicidal Ideation: Denies Homicidal Ideation: Denies Insight/Judgement: Poor Sleep: Difficulty falling asleep Appetite: Weight loss Muscle strength/Tone: Moderate Hypotonicity Gait/Station: Shuffling Additional Comments: Depakote 500mg po bid Psychiatric Findings - Problem List ([place] 1, 2,3) (1) Alcohol dependence with uncomplicated withdrawal Current Visit: Yes Status: Chronic (2) Cocaine dependence Current Visit: Yes Status: Chronic Qualifiers: Substance use status: uncomplicated Qualified Code(s): F14.20 - Cocaine dependence, uncomplicated (3) Nicotine dependence Current Visit: Yes Status: Chronic Qualifiers: Nicotine product type: cigarettes Substance use status: uncomplicated Qualified Code(s): F17.210 - Nicotine dependence, cigarettes, uncomplicated (4) Bipolar disorder Current Visit: Yes Status: Acute - Initial Treatment Plan Initial Treatment Plan: Depakote 250 mg po bid
[2017-03-10] MEDS: chlordiazePOXIDE 5 MG CAPSULE PO SCH ×2 (17:11→22:13)
[2017-03-10 18:19] LABS: URINE APPEARANCE CLEAR; URINE BILIRUBIN NEGATIVE (NEGATIVE); URINE BLOOD NEGATIVE (NEGATIVE); URINE COLOR YELLOW; URINE GLUCOSE (UA) NEGATIVE (NEGATIVE); URINE KETONE NEGATIVE (NEGATIVE); URINE NITRITE NEGATIVE (NEGATIVE); URINE PROTEIN NEGATIVE (NEGATIVE); URINE UROBILINOGEN NEGATIVE E.U./dl (0.2-1.0)
[2017-03-10 18:35] LABS: URINE LEUK ESTERASE 1+ (NEGATIVE)
[2017-03-10 19:24] LABS: CALCIUM OXALATE CRYSTALS MODERATE /hpf (NONE SEEN); URINE HYALINE CAST 1 /lpf; URINE RBC 1 /hpf (0-3); URINE WBC 11 /hpf (3-5)
[2017-03-10] MEDS: THIAMINE HCL 100 MG TABLET (FP) PO SCH (22:13)
[2017-03-11] MEDS: chlordiazePOXIDE 5 MG CAPSULE PO SCH ×2 (06:00→12:35)
--- NOTE | 2017-03-11 10:56 | PN ---
BHS Progress Note (SOAP) Subjective: interrupted sleep, sweats , bodyaches Objective: 03/11/17 10:53 Vital Signs Temperature 97.9 F 03/11/17 06:00 Pulse Rate 111 H 03/11/17 06:00 Respiratory Rate 16 03/11/17 06:00 Blood Pressure 96/66 03/11/17 06:00 O2 Sat by Pulse Oximetry (%) Laboratory Tests 03/08/17 03/09/17 03/09/17 18:10 07:30 07:30 WBC 2.4 L RBC 3.43 L Hgb 11.6 Hct 34.4 MCV 100.3 H MCHC 33.6 RDW 12.2 Plt Count 68 L D MPV 10.5 Sodium 143 Potassium 3.5 Chloride 105 Carbon Dioxide 28 Anion Gap 10 BUN 9 D Creatinine 0.9 Creat Clearance w eGFR > 60 Random Glucose 88 Calcium 7.7 L Total Bilirubin 0.4 AST 64 H D ALT 26 D Alkaline Phosphatase 45 Total Protein 7.0 Albumin 2.4 L Urine Color Kellie Urine Appearance Clear Urine pH 6.0 Ur Specific [place] 1.024 Urine Protein 1+ H Urine Glucose (UA) Negative Urine Ketones Negative Urine Blood Negative Urine Nitrite Negative Urine Bilirubin Negative Urine Urobilinogen 4.0 e.u/dl H Ur Leukocyte Esterase 3+ H Urine RBC 4 Urine WBC 25 Ur Epithelial Cells Few Calcium Oxalate Crystal Rare Hyaline Casts Urine Mucus Rare RPR Titer 03/09/17 03/10/17 07:30 13:00 WBC RBC Hgb Hct MCV MCHC RDW Plt Count MPV Sodium Potassium Chloride Carbon Dioxide Anion Gap BUN Creatinine Creat Clearance w eGFR Random Glucose Calcium Total Bilirubin AST ALT Alkaline Phosphatase Total Protein Albumin Urine Color Yellow Urine Appearance Clear Urine pH 7.0 Ur Specific [place] 1.016 Urine Protein Negative Urine Glucose (UA) Negative Urine Ketones Negative Urine Blood Negative Urine Nitrite Negative Urine Bilirubin Negative Urine Urobilinogen Negative Ur Leukocyte Esterase 1+ H D Urine RBC 1 Urine WBC 11 Ur Epithelial Cells Few Calcium Oxalate Crystal Moderate Hyaline Casts 1 Urine Mucus RPR Titer Nonreactive pt aox3 in nad ambulating Assessment: 03/11/17 10:54 03/11/17 10:55 withdrawal sx's Plan: cont detox increase fluids analgesic balm d/c in am
[2017-03-11] MEDS ORDERED: FLUCONAZOLE 100 MG TABLET (UD) PO ONE (12:14)
[2017-03-11] MEDS: FLUCONAZOLE 100 MG TABLET (UD) PO SCH (12:22)
[2017-03-11] MEDS ORDERED: SULFAMETHOXAZOLE/TRIMETHOPRIM 800MG/160MG D.S. TABLET PO ONE (12:23)
[2017-03-11] MEDS ORDERED: DIVALPROEX SODIUM 500 MG TABLET E.C. PO ONE (12:24)
[2017-03-11] MEDS: DIVALPROEX SODIUM 500 MG TABLET E.C. PO SCH ×2 (12:34→22:30)
[2017-03-11] MEDS: PRENATAL VITAMINS W/ FOLIC ACID TABLET (FP) PO SCH (12:34)
[2017-03-11] MEDS: SULFAMETHOXAZOLE/TRIMETHOPRIM 800MG/160MG D.S. TABLET PO SCH (12:34)
[2017-03-11] MEDS: chlordiazePOXIDE HCL 10 MG CAPSULE PO SCH ×2 (18:17→22:30)
[2017-03-11] MEDS: METHYL SALICYLATE/MENTHOL OINT 30 GM TUBE TP SCH (22:30)
[2017-03-11] MEDS: THIAMINE HCL 100 MG TABLET (FP) PO SCH (22:30)
[2017-03-12] MEDS: chlordiazePOXIDE HCL 10 MG CAPSULE PO SCH ×2 (06:11→11:33)
--- NOTE | 2017-03-12 08:59 | DS ---
[facility] Detox Discharge Summary Admission Date: 03/08/17 Discharge Date: 03/12/17 - History Present History: Alcohol Dependence, Cocaine Dependence - Physical Exam Results Vital Signs: Vital Signs Temperature 97.2 F L 03/12/17 06:40 Pulse Rate 62 03/12/17 06:40 Respiratory Rate 16 03/12/17 06:40 Blood Pressure 100/67 03/12/17 06:40 O2 Sat by Pulse Oximetry (%) - Treatment Hospital Course: Detox Protocol Followed, Detoxed Safely, Responded well, Discharged Condition Good - Medication Discharge Medications: Ambulatory Orders Nelfinavir Mesylate [Viracept -] 1,250 mg PO BID 01/05/17 Divalproex [Depakote -] 500 mg PO BID 03/08/17 Fluconazole [Diflucan -] 100 mg PO DAILY 03/08/17 Ritonavir/Lopinavir [Kaletra 200/50] 1 combo PO BID 03/08/17 Sulfamethoxazole/Trimethoprim [Bactrim Ds -] 1 tab PO DAILY 03/08/17 Divalproex [Depakote -] 250 mg PO BID #60 tablet.ec 03/10/17 - Diagnosis (1) Bipolar disorder Current Visit: Yes Status: Chronic Qualifiers: Most recent bipolar episode type: most recent episode unspecified type (2) Alcohol dependence with uncomplicated withdrawal Current Visit: Yes Status: Chronic (3) Cocaine dependence Current Visit: Yes Status: Chronic Qualifiers: Substance use status: uncomplicated Qualified Code(s): F14.20 - Cocaine dependence, uncomplicated (4) HIV (human immunodeficiency virus infection) Current Visit: Yes Status: Chronic (5) Hepatitis C Current Visit: Yes Status: Chronic Qualifiers: Viral hepatitis chronicity: chronic Hepatic coma status: without hepatic coma Qualified Code(s): B18.2 - Chronic viral hepatitis C (6) Nicotine dependence Current Visit: Yes Status: Chronic Qualifiers: Nicotine product type: cigarettes Substance use status: uncomplicated Qualified Code(s): F17.210 - Nicotine dependence, cigarettes, uncomplicated (7) Depression Current Visit: Yes Status: Chronic Qualifiers: Active/Remission status: remission status unspecified - AMA Did Patient Leave Against Medical Advice: No
[2017-03-12] MEDS: SULFAMETHOXAZOLE/TRIMETHOPRIM 800MG/160MG D.S. TABLET PO SCH (10:38)
[2017-03-12] MEDS: PRENATAL VITAMINS W/ FOLIC ACID TABLET (FP) PO SCH (10:38)
[2017-03-12] MEDS: DIVALPROEX SODIUM 500 MG TABLET E.C. PO SCH ×2 (10:38→22:17)
[2017-03-12] MEDS: FLUCONAZOLE 100 MG TABLET (UD) PO SCH (10:39)
[2017-03-12] MEDS: METHYL SALICYLATE/MENTHOL OINT 30 GM TUBE TP SCH ×2 (10:39→22:17)
[2017-03-12] MEDS: IBUPROFEN 400 MG TABLET (FP) PO PRN (20:32)
[2017-03-12] MEDS: THIAMINE HCL 100 MG TABLET (FP) PO SCH (22:17)
[2017-03-13] MEDS: hydrOXYzine PAMOATE 25 MG CAPSULE (FP) PO PRN (06:28)
[2017-03-13 06:57] VITALS: BP 121/63; PULSE 72; TEMP 97.5
--- NOTE | 2017-03-13 09:32 | DS ---
[facility] Detox Discharge Summary Admission Date: 03/08/17 Discharge Date: 03/13/17 - History Present History: Alcohol Dependence, Cocaine Dependence - Physical Exam Results Vital Signs: Vital Signs Temperature 97.5 F L 03/13/17 06:56 Pulse Rate 72 03/13/17 06:56 Respiratory Rate 18 03/13/17 06:56 Blood Pressure 121/63 03/13/17 06:56 O2 Sat by Pulse Oximetry (%) - Treatment Hospital Course: Detox Protocol Followed, Detoxed Safely, Responded well, Discharged Condition Good Patient has Accepted a Rehab Referral to: [facility] - pt held in detox [address] at [facility]. - Medication Discharge Medications: Ambulatory Orders Nelfinavir Mesylate [Viracept -] 1,250 mg PO BID 01/05/17 Divalproex [Depakote -] 500 mg PO BID 03/08/17 Fluconazole [Diflucan -] 100 mg PO DAILY 03/08/17 Ritonavir/Lopinavir [Kaletra 200/50] 1 combo PO BID 03/08/17 Sulfamethoxazole/Trimethoprim [Bactrim Ds -] 1 tab PO DAILY 03/08/17 Divalproex [Depakote -] 250 mg PO BID #60 tablet.ec 03/10/17 Fluconazole [Diflucan -] 100 mg PO DAILY #14 tablet 03/12/17 Sulfamethoxazole/Trimethoprim [Bactrim DS -] 1 each PO DAILY #30 tablet - Diagnosis (1) Bipolar disorder Current Visit: Yes Status: Chronic Qualifiers: Most recent bipolar episode type: most recent episode unspecified type (2) Alcohol dependence with uncomplicated withdrawal Current Visit: Yes Status: Chronic (3) Cocaine dependence Current Visit: Yes Status: Chronic Qualifiers: Substance use status: uncomplicated Qualified Code(s): F14.20 - Cocaine dependence, uncomplicated (4) HIV (human immunodeficiency virus infection) Current Visit: Yes Status: Chronic (5) Hepatitis C Current Visit: Yes Status: Chronic Qualifiers: Viral hepatitis chronicity: chronic Hepatic coma status: without hepatic coma Qualified Code(s): B18.2 - Chronic viral hepatitis C (6) Nicotine dependence Current Visit: Yes Status: Chronic Qualifiers: Nicotine product type: cigarettes Substance use status: uncomplicated Qualified Code(s): F17.210 - Nicotine dependence, cigarettes, uncomplicated (7) Depression Current Visit: Yes Status: Chronic Qualifiers: Active/Remission status: remission status unspecified
== END 2017-03-13 08:55 | disposition home or self-care (01) | DRG 775 ==
LOC: YASAS 10:14 → Y6N 11:44
PROVIDERS: ADMIT Internal Medicine; ATTEND Internal Medicine Addiction Medicine
PROC: HZ2ZZZZ Detoxification Services for Substance Abuse Treatment (ICD-10-PCS; principal; 2017-03-13)
DX: F10.230 Alcohol dependence with withdrawal, uncomplicated (principal); F17.210 Nicotine dependence, cigarettes, uncomplicated; F31.9 Bipolar disorder, unspecified; B18.2 Chronic viral hepatitis C; Z21 Asymptomatic human immunodeficiency virus [HIV] infection status; R63.4 Abnormal weight loss; Z68.1 Body mass index [BMI] 19.9 or less, adult
CPT/HCPCS: 36415; 80053; 80164; 81003; 81015; 85027; 86593; 93005; 93010